=== PATIENT | female | born 1940 | race Caucasian/White ===

== ENCOUNTER 2017-02-22 02:43 | Emergency (ER) | payer MEDICARE ==
[~2017-02-22] VITALS: Ht 165.1 cm; Wt 61.2 kg
[2017-02-22] MEDS ORDERED: Motrin,Rufen800 MG PO (04:42)
== END 2017-02-22 05:01 | disposition home or self-care (01) ==
LOC: ED 02:43
DX: S82.001A Unspecified fracture of right patella, initial encounter for closed fracture (principal); S60.212A Contusion of left wrist, initial encounter; W18.30XA Fall on same level, unspecified, initial encounter; Y93.89 Activity, other specified; Y92.9 Unspecified place or not applicable; Y99.9 Unspecified external cause status